=== PATIENT | male | born 1950 | race Caucasian/White ===

== ENCOUNTER 2018-08-24 10:10 | Emergency (ER) | payer OTHER ==
[~2018-08-24] VITALS: Ht 180.3 cm; Wt 135.2 kg
[~2018-08-24 10:10] MED LIST: COZAAR50 MG; HUMALOG MIX 75/10 ML; INVOKANA100 MG; TAMS0.4C
[2018-08-24] MEDS ORDERED: FINASTERIDE5 MG (10:33)
[2018-08-24] MEDS ORDERED: LEVAQUIN750 MG (10:34)
[2018-08-24] MEDS ORDERED: SYNTHROID75 MCG (10:35)
[2018-08-24] MEDS ORDERED: HUMALOG MI100 UNIT/2 (10:35)
[2018-08-24] MEDS ORDERED: GLUCOTROL10 MG (10:35)
== END 2018-08-24 16:01 | disposition home or self-care (01) ==
LOC: ER 10:10
DX: N39.0 Urinary tract infection, site not specified (principal); B96.29 Other Escherichia coli [E. coli] as the cause of diseases classified elsewhere

== ENCOUNTER 2020-07-10 07:43 | Day surgery (SDC) | payer OTHER ==
[~2020-07-10 07:43] MED LIST changes: +FINASTERIDE5 MG; +GLUCOTROL10 MG; +HUMALOG MI100 UNIT/2; +LEVAQUIN750 MG; +SYNTHROID75 MCG
== END 2020-07-10 17:30 | disposition home or self-care (01) ==
LOC: CIR.AMB 07:43
PROVIDERS: ATTEND Urology
DX: N40.1 Benign prostatic hyperplasia with lower urinary tract symptoms (principal); R33.8 Other retention of urine; N41.2 Abscess of prostate; Z20.822 Contact with and (suspected) exposure to COVID-19; B96.29 Other Escherichia coli [E. coli] as the cause of diseases classified elsewhere

== ENCOUNTER 2023-02-09 14:28 | Inpatient (IN) | payer OTHER ==
[~2023-02-09] VITALS: Ht 180.3 cm; Wt 142.9 kg
[2023-02-09 17:09] LABS: HEMATOCRIT 38.3 % (39.0-48.0); HEMOGLOBIN 13.1 g/dL (13-16.00); MEAN CELL VOLUME 87.7 fL (80.0-100.00); MEAN CORPUSCULAR HGB CONC 34.3 g/dl (32.0-36.0); PLATELET COUNT 212 K/uL (150-450); RED BLOOD COUNT 4.36 M/uL (4.00-6.00); URINE APPEARANCE Clear; URINE BILIRRUBIN Negative (NEGATIVE); URINE BLOOD Negative; URINE COLOR Yellow; URINE GLUCOSE Negative (NEGATIVE); URINE LEUKOCYTE Negative; URINE NITRATE Negative; URINE PROTEIN Negative (NEGATIVE); URINE UROBILINOGEN 0.2 E.U./dl
[2023-02-09 17:11] LABS: URINE BACTERIA 2.5 uL (0.0-1933); URINE EPITHELIAL CELLS 0.9 uL (0.0-38.8); URINE RBC 1.1 uL (0.0-20.8); URINE WBC 0.4 uL (0.0-23.2)
[2023-02-09 17:28] LABS: INR 1.05; PARTIAL THROMBOPLASTIN TIME 31.9 SECONDS (22.0-34.0)
[2023-02-09 17:38] LABS: ALBUMIN 3.9 gm/dL (3.4-5.0); BILIRUBIN TOTAL 0.47 mg/dL (0.3-1.2); CALCIUM 9.4 mg/dL (8.5-10.1); CREATININE SERUM 0.77 mg/dL (0.70-1.30); GFR 99.31; POTASSIUM 4.12 mEq/L (3.5-5.1); TOTAL PROTEIN 7.9 gm/dL (6.4-8.2)
[2023-02-10 06:43] LABS: HEMATOCRIT 36.6 % (39.0-48.0); HEMOGLOBIN 12.6 g/dL (13-16.00); MEAN CELL VOLUME 88.1 fL (80.0-100.00); MEAN CORPUSCULAR HEMOGLOBIN 30.3 pg (27.00-32.0); MEAN CORPUSCULAR HGB CONC 34.3 g/dl (32.0-36.0); PLATELET COUNT 207 K/uL (150-450); RED BLOOD COUNT 4.15 M/uL (4.00-6.00); RED CELL DISTRIBUTION WIDTH 14.2 % (11.5-14.5)
[2023-02-10 07:21] LABS: ALBUMIN 3.8 gm/dL (3.4-5.0); BILIRUBIN TOTAL 0.66 mg/dL (0.3-1.2); BILIRUBIN,CONJUGATED 0.2 mg/dL (0.0-0.2); BILIRUBIN,UNCONJUGATED 0.46 mg/dL (0.0-0.6); CALCIUM 8.9 mg/dL (8.5-10.1); CHOL HDL RATIO 3.4 (0-5.0); CREATININE SERUM 0.75 mg/dL (0.70-1.30); GFR 102.37; POTASSIUM 4.22 mEq/L (3.5-5.1); TOTAL PROTEIN 7.2 gm/dL (6.4-8.2)
[2023-02-10 14:35] LABS: CALCIUM 8.6 mg/dL (8.5-10.1); CHOL HDL RATIO 3.5 (0-5.0); CREATININE SERUM 0.73 mg/dL (0.70-1.30); POTASSIUM 4.41 mEq/L (3.5-5.1)
[2023-02-10 15:07] LABS: GFR 105.61
== END 2023-02-15 19:52 | disposition home or self-care (01) | DRG 392 ==
LOC: ER 14:28 → MEDI 21:30
PROVIDERS: General Practice; ADMIT Internal Medicine; ATTEND Internal Medicine
PROC: 3E0336Z Introduction of Nutritional Substance into Peripheral Vein, Percutaneous Approach (ICD-10-PCS; 2023-02-10)
PROC: BW21YZZ Computerized Tomography (CT Scan) of Abdomen and Pelvis using Other Contrast (ICD-10-PCS; principal; 2023-02-14)
DX: K57.32 Diverticulitis of large intestine without perforation or abscess without bleeding (principal); M54.89 Other dorsalgia; R10.11 Right upper quadrant pain; T78.1XXA Other adverse food reactions, not elsewhere classified, initial encounter; E11.9 Type 2 diabetes mellitus without complications; E03.9 Hypothyroidism, unspecified; G47.33 Obstructive sleep apnea (adult) (pediatric); Z79.4 Long term (current) use of insulin; Y84.8 Other medical procedures as the cause of abnormal reaction of the patient, or of later complication, without mention of misadventure at the time of the procedure; Y92.230 Patient room in hospital as the place of occurrence of the external cause

== ENCOUNTER 2023-03-07 10:26 | Emergency (ER) | payer OTHER ==
[~2023-03-07] VITALS: Ht 180.3 cm; Wt 127.0 kg
[2023-03-07 12:30] LABS: HEMATOCRIT 39.7 % (39.0-48.0); HEMOGLOBIN 13.2 g/dL (13-16.00); MEAN CELL VOLUME 89.9 fL (80.0-100.00); MEAN CORPUSCULAR HEMOGLOBIN 29.8 pg (27.00-32.0); MEAN CORPUSCULAR HGB CONC 33.1 g/dl (32.0-36.0); PLATELET COUNT 223 K/uL (150-450); RED BLOOD COUNT 4.42 M/uL (4.00-6.00); RED CELL DISTRIBUTION WIDTH 14.3 % (11.5-14.5)
[2023-03-07 12:31] LABS: PH,URINE 7.5 (5.0-8.0); URINE APPEARANCE Clear; URINE BILIRRUBIN Negative (NEGATIVE); URINE BLOOD Negative; URINE COLOR Yellow; URINE GLUCOSE Negative (NEGATIVE); URINE LEUKOCYTE Negative; URINE NITRATE Negative; URINE PROTEIN Negative (NEGATIVE); URINE UROBILINOGEN 0.2 E.U./dl
[2023-03-07 12:47] LABS: CALCIUM 9.9 mg/dL (8.5-10.1); CREATININE SERUM 0.7 mg/dL (0.70-1.30); GFR 110.85; POTASSIUM 4.16 mEq/L (3.5-5.1)
[2023-03-07 12:48] LABS: INR 1.05; PARTIAL THROMBOPLASTIN TIME 28.5 SECONDS (22.0-34.0)
[2023-03-07 12:58] LABS: URINE EPITHELIAL CELLS 0.7 uL (0.0-38.8); URINE WBC 1.6 uL (0.0-23.2)
[2023-03-07] MEDS ORDERED: NAPROXEN500 MG PO (16:11)
== END 2023-03-07 16:13 | disposition home or self-care (01) ==
LOC: ER 10:27
PROVIDERS: General Practice
DX: R10.9 Unspecified abdominal pain (principal); Z88.2 Allergy status to sulfonamides; E11.9 Type 2 diabetes mellitus without complications; Z79.4 Long term (current) use of insulin; I10 Essential (primary) hypertension; E78.49 Other hyperlipidemia
CPT/HCPCS: 96365; 96366; 99284; J1885 ×2

== ENCOUNTER 2023-05-08 18:07 | Emergency (ER) | payer OTHER ==
[~2023-05-08] VITALS: Ht 180.3 cm; Wt 139.7 kg
[~2023-05-08 18:07] MED LIST changes: +NAPROXEN500 MG PO
[2023-05-08] MEDS ORDERED: KETOROLAC TROMETHAMINE 60 MG VIAL IM ONE (19:45)
[2023-05-08] MEDS ORDERED: HYOSCYAMINE SULFATE 0.125 MG TAB.SUBL SL ONE (20:00)
[2023-05-08] MEDS ORDERED: FAMOTIDINE/PF 20 MG/2 ML VIAL IV PUSH ONE (20:00)
[2023-05-08 20:16] LABS: HEMATOCRIT 37.9 % (39.0-48.0); MEAN CELL VOLUME 88.5 fL (80.0-100.00); MEAN CORPUSCULAR HEMOGLOBIN 30.3 pg (27.00-32.0); MEAN CORPUSCULAR HGB CONC 34.2 g/dl (32.0-36.0); PLATELET COUNT 198 K/uL (150-450); RED BLOOD COUNT 4.28 M/uL (4.00-6.00); RED CELL DISTRIBUTION WIDTH 14.5 % (11.5-14.5)
[2023-05-08 20:18] LABS: URINE APPEARANCE Clear; URINE BILIRRUBIN Negative (NEGATIVE); URINE BLOOD Negative; URINE COLOR Yellow; URINE GLUCOSE Negative (NEGATIVE); URINE LEUKOCYTE Negative; URINE NITRATE Negative; URINE PROTEIN Negative (NEGATIVE); URINE UROBILINOGEN 0.2 E.U./dl
[2023-05-08 20:19] LABS: URINE EPITHELIAL CELLS 2.9 uL (0.0-38.8); URINE WBC 7.2 uL (0.0-23.2)
[2023-05-08 20:24] LABS: URINE RBC 1.1 uL (0.0-20.8)
[2023-05-08 20:33] LABS: ALBUMIN 4.2 gm/dL (3.4-5.0); BILIRUBIN TOTAL 0.61 mg/dL (0.3-1.2); CALCIUM 9.5 mg/dL (8.5-10.1); CREATININE SERUM 0.67 mg/dL (0.70-1.30); GFR 116.6; GLOBULINA 3.3 G/DL (2.4-3.5); POTASSIUM 4.21 mEq/L (3.5-5.1); TOTAL PROTEIN 7.5 gm/dL (6.4-8.2)
== END 2023-05-09 00:21 | disposition home or self-care (01) ==
LOC: ER 18:08
PROVIDERS: General Practice
DX: R10.11 Right upper quadrant pain (principal); K57.30 Diverticulosis of large intestine without perforation or abscess without bleeding; E11.9 Type 2 diabetes mellitus without complications; Z79.4 Long term (current) use of insulin; I10 Essential (primary) hypertension; Z88.2 Allergy status to sulfonamides

== ENCOUNTER 2024-06-09 09:39 | Emergency (ER) | payer OTHER ==
[~2024-06-09] VITALS: Ht 180.3 cm; Wt 142.0 kg
[2024-06-09] MEDS ORDERED: MOUNJARO5 MG/0.5 M SQ (09:55)
[2024-06-09] MEDS ORDERED: CIPROFLOXACIN IN 5 % DEXTROSE 400 MG/200 ML PIGGYBAG IV ONE (10:14)
[2024-06-09] MEDS ORDERED: CIPROFLOXACIN IN 5 % DEXTROSE 400 MG/200 ML PIGGYBAG IV SCH (10:15)
[2024-06-09 10:50] LABS: HEMATOCRIT 35.5 % (39.0-48.0); HEMOGLOBIN 11.8 g/dL (13-16.00); MEAN CELL VOLUME 89.2 fL (80.0-100.00); MEAN CORPUSCULAR HEMOGLOBIN 29.8 pg (27.00-32.0); MEAN CORPUSCULAR HGB CONC 33.4 g/dl (32.0-36.0); PLATELET COUNT 188 K/uL (150-450); RED BLOOD COUNT 3.97 M/uL (4.00-6.00); RED CELL DISTRIBUTION WIDTH 14.3 % (11.5-14.5)
[2024-06-09 11:28] LABS: PH,URINE 5.5 (5.0-8.0); URINE APPEARANCE Turbid; URINE BILIRRUBIN Negative (NEGATIVE); URINE BLOOD Moderate; URINE COLOR Yellow; URINE GLUCOSE Negative (NEGATIVE); URINE KETONE Trace (NEGATIVE); URINE LEUKOCYTE Large; URINE NITRATE Negative; URINE PROTEIN 30 (NEGATIVE); URINE UROBILINOGEN 0.2 E.U./dl
[2024-06-09 11:29] LABS: URINE EPITHELIAL CELLS 11.8 uL (0.0-38.8); URINE RBC 118.7 uL (0.0-20.8)
[2024-06-09 12:04] LABS: URINE BACTERIA > 9821.5 uL (0.0-1933); URINE CAST 0.88 uL (0.0-1.40); URINE WBC > 5548.3 uL (0.0-23.2)
[2024-06-09 12:06] LABS: URINE YEAST NEGATIVE /hpf
[2024-06-09 12:46] LABS: CALCIUM 8.8 mg/dL (8.5-10.1); CREATININE SERUM 0.77 mg/dL (0.70-1.30); GFR 99.03; POTASSIUM 4.22 mEq/L (3.5-5.1)
== END 2024-06-09 14:08 | disposition home or self-care (01) ==
LOC: ER 09:40
PROVIDERS: General Practice
DX: N39.0 Urinary tract infection, site not specified (principal); I10 Essential (primary) hypertension; E11.9 Type 2 diabetes mellitus without complications; Z79.4 Long term (current) use of insulin; Z79.84 Long term (current) use of oral hypoglycemic drugs; Z88.2 Allergy status to sulfonamides